=== PATIENT | female | born 1985 | race Caucasian/White ===

== ENCOUNTER 2018-05-17 07:03 | Emergency (ER) | payer MEDICAID, OTHER ==
[2018-05-17] MEDS: predniSONE 20 MG TAB PO (07:26)
[2018-05-17] MEDS: DIPHENHYDRAMINE 25 MG CAP PO (07:26)
== END 2018-05-17 07:31 | disposition home or self-care (01) ==
LOC: FTE 07:03
DX: L50.9 Urticaria, unspecified (principal); L53.9 Erythematous condition, unspecified
CPT/HCPCS: 99283; J7512